=== PATIENT | male | born 1990 | race Caucasian/White ===

== ENCOUNTER 2017-02-28 20:35 | Emergency (ER) | payer SELFPAY ==
[~2017-02-28] VITALS: Ht 180.3 cm; Wt 117.9 kg
[~2017-02-28 20:35] MED LIST: AMOXICILLIN500 MG PO; BACTRIM DS 8001 TA1 PO; CLARITIN-D 12 H1 TAB PO; DOXYCYCLINE MO100 MG PO; HYDROCODONE BIT1 T11 PO; KEFLEX500 MG PO; MOTRIN600 MG PO; MOTRIN800 MG PO; NKHM; TYLENOL WITH CO1 TA1 PO
[2017-02-28 20:48] VITALS: BP 146/79
[2017-02-28] MEDS ORDERED: MEDROL DOSEPAK4 MG PO (22:32)
[2017-02-28] MEDS ORDERED: ZITHROMAX250 MG PO (22:32)
== END 2017-02-28 22:33 | disposition home or self-care (01) ==
LOC: ED 20:35
DX: R05 Cough (principal); R50.9 Fever, unspecified; R11.2 Nausea with vomiting, unspecified; F17.200 Nicotine dependence, unspecified, uncomplicated

== ENCOUNTER 2018-11-16 17:35 | Emergency (ER) | payer OTHER ==
[~2018-11-16] VITALS: Ht 185.4 cm; Wt 127.0 kg
[~2018-11-16 17:35] MED LIST changes: +MEDROL DOSEPAK4 MG PO; +ZITHROMAX250 MG PO; +ZOFRAN ODT4 MG SL
[2018-11-16 17:37] VITALS: BP 137/66
== END 2018-11-16 19:00 ==
LOC: ED 17:35
DX: K52.9 Noninfective gastroenteritis and colitis, unspecified (principal); H61.23 Impacted cerumen, bilateral

== ENCOUNTER 2018-12-16 16:46 | Emergency (ER) | payer OTHER ==
[~2018-12-16] VITALS: Ht 185.4 cm; Wt 129.3 kg
[2018-12-16 16:47] VITALS: BP 152/62
[2019-03-01] MEDS ORDERED: ZOFRAN4 MG PO (19:51)
[2019-03-02] MEDS ORDERED: IMODIUM A-D2 M2 PO (12:43)
[2019-03-02] MEDS ORDERED: ZOFRAN4 MG PO (12:43)
[2019-04-13] MEDS ORDERED: CEPHALEXIN500 M1 PO (22:04)
[2019-04-13] MEDS ORDERED: SEPTDS PO (22:04)
== END 2018-12-16 18:24 | disposition home or self-care (01) ==
LOC: ED 16:46
DX: J02.8 Acute pharyngitis due to other specified organisms (principal); B97.89 Other viral agents as the cause of diseases classified elsewhere

== ENCOUNTER 2018-12-27 16:29 | Emergency (ER) | payer OTHER ==
[~2018-12-27] VITALS: Ht 185.4 cm; Wt 127.0 kg
[2018-12-27 16:30] VITALS: BP 150/84
[2018-12-27] MEDS ORDERED: ZOFRAN4 MG PO (19:13)
[2019-03-01] MEDS ORDERED: ZOFRAN4 MG PO (19:51)
[2019-03-02] MEDS ORDERED: IMODIUM A-D2 M2 PO (12:43)
[2019-03-02] MEDS ORDERED: ZOFRAN4 MG PO (12:43)
[2019-04-13] MEDS ORDERED: CEPHALEXIN500 M1 PO (22:04)
[2019-04-13] MEDS ORDERED: SEPTDS PO (22:04)
== END 2018-12-27 19:24 | disposition home or self-care (01) ==
LOC: ED 16:29
DX: R11.2 Nausea with vomiting, unspecified (principal); R19.7 Diarrhea, unspecified; R51 Headache; F17.200 Nicotine dependence, unspecified, uncomplicated

== ENCOUNTER 2019-08-03 13:07 | Emergency (ER) | payer OTHER ==
[~2019-08-03] VITALS: Ht 185.4 cm; Wt 140.6 kg
[~2019-08-03 13:07] MED LIST changes: +CEPHALEXIN500 M1 PO; +IMODIUM A-D2 M2 PO; +SEPTDS PO; +ZOFRAN4 MG PO
[2019-08-03] MEDS ORDERED: PREDNISONE50 MG PO (15:23)
[2019-08-03] MEDS ORDERED: PROAIR HFA8.5 GM INH (15:23)
[2019-08-03] MEDS ORDERED: ZITHROMAX250 MG PO (15:23)
[2019-08-03 15:24] VITALS: BP 144/79
== END 2019-08-03 15:35 | disposition home or self-care (01) ==
LOC: ED 13:07
DX: J40 Bronchitis, not specified as acute or chronic (principal); F17.200 Nicotine dependence, unspecified, uncomplicated; Z79.2 Long term (current) use of antibiotics

== ENCOUNTER 2019-11-20 18:22 | Emergency (ER) | payer OTHER ==
[~2019-11-20] VITALS: Ht 185.4 cm; Wt 136.1 kg
[~2019-11-20 18:22] MED LIST changes: +PREDNISONE50 MG PO; +PROAIR HFA8.5 GM INH
[2019-11-20 18:44] VITALS: BP 157/83
[2019-11-20] MEDS ORDERED: VIBRAMYCIN100 MG PO (20:40)
== END 2019-11-20 21:00 | disposition home or self-care (01) ==
LOC: ED 18:22
DX: L02.212 Cutaneous abscess of back [any part, except buttock and flank] (principal); E66.01 Morbid (severe) obesity due to excess calories; F17.200 Nicotine dependence, unspecified, uncomplicated; Z79.2 Long term (current) use of antibiotics; Z79.899 Other long term (current) drug therapy

== ENCOUNTER 2020-04-22 13:41 | Emergency (ER) | payer OTHER ==
[~2020-04-22] VITALS: Ht 185.4 cm; Wt 158.8 kg
[~2020-04-22 13:41] MED LIST changes: +VIBRAMYCIN100 MG PO
[2020-04-22 13:49] VITALS: BP 148/98
[2020-04-22] MEDS ORDERED: METHOCARBAMOL500 M1 PO (14:45)
[2020-04-22] MEDS ORDERED: NAPROSYN500 MG PO (14:45)
[2020-04-22] MEDS ORDERED: MEDROL DOSEPAK4 MG PO (14:45)
== END 2020-04-22 15:10 | disposition home or self-care (01) ==
LOC: ED 13:41
DX: S39.012A Strain of muscle, fascia and tendon of lower back, initial encounter (principal); X50.0XXA Overexertion from strenuous movement or load, initial encounter; Y93.89 Activity, other specified; Y92.89 Other specified places as the place of occurrence of the external cause; Y99.8 Other external cause status

== ENCOUNTER 2020-08-07 14:17 | Emergency (ER) | payer OTHER ==
[~2020-08-07] VITALS: Wt 142.9 kg
[~2020-08-07 14:17] MED LIST changes: +METHOCARBAMOL500 M1 PO; +NAPROSYN500 MG PO
[2020-08-07 14:23] VITALS: BP 140/76
[2020-08-07] MEDS ORDERED: CLARITIN10 MG PO (16:58)
[2020-08-07] MEDS ORDERED: PREDNISONE20 M1 PO (16:58)
[2020-08-07] MEDS ORDERED: TESSALON PERLE100 MG PO (16:58)
[2020-08-07] MEDS ORDERED: PROVENTIL HFA6.7 GM INH (16:58)
== END 2020-08-07 17:04 | disposition home or self-care (01) ==
LOC: ED 14:17
DX: J20.9 Acute bronchitis, unspecified (principal); Z79.899 Other long term (current) drug therapy

== ENCOUNTER 2020-08-19 18:28 | Emergency (ER) | payer OTHER ==
[~2020-08-19] VITALS: Ht 185.4 cm; Wt 158.8 kg
[~2020-08-19 18:28] MED LIST changes: +CLARITIN10 MG PO; +PREDNISONE20 M1 PO; +PROVENTIL HFA6.7 GM INH; +TESSALON PERLE100 MG PO
[2020-08-19 18:32] VITALS: BP 151/94
[2020-08-19] MEDS ORDERED: CEPHALEXIN500 M1 PO (18:45)
[2020-08-19] MEDS ORDERED: SEPTDS PO (18:45)
== END 2020-08-19 18:44 | disposition home or self-care (01) ==
LOC: ED 18:28
DX: L03.317 Cellulitis of buttock (principal); F17.200 Nicotine dependence, unspecified, uncomplicated; Z86.14 Personal history of Methicillin resistant Staphylococcus aureus infection; Z79.2 Long term (current) use of antibiotics; Z79.899 Other long term (current) drug therapy

== ENCOUNTER 2020-08-22 02:40 | Emergency (ER) | payer OTHER ==
[~2020-08-22] VITALS: Ht 185.4 cm; Wt 158.8 kg
[2020-08-22 02:52] VITALS: BP 141/90
[2020-08-22] MEDS ORDERED: CLINDAMYCIN HC300 MG PO (05:30)
[2020-08-22] MEDS ORDERED: MEDROL DOSEPAK4 MG PO (05:30)
[2020-08-22] MEDS ORDERED: GOOD SENSE ANTI25 MG PO (05:30)
[2020-08-22] MEDS ORDERED: PEPCID20 MG PO (05:30)
== END 2020-08-22 05:41 | disposition home or self-care (01) ==
LOC: ED 02:40
DX: T78.40XA Allergy, unspecified, initial encounter (principal); L50.9 Urticaria, unspecified; L03.90 Cellulitis, unspecified; Z79.899 Other long term (current) drug therapy; Z79.2 Long term (current) use of antibiotics; X58.XXXA Exposure to other specified factors, initial encounter

== ENCOUNTER 2020-11-16 12:52 | Observation (INO) | payer OTHER ==
[~2020-11-16] VITALS: Wt 158.8 kg
[~2020-11-16 12:52] MED LIST changes: +CLINDAMYCIN HC300 MG PO; +GOOD SENSE ANTI25 MG PO; +PEPCID20 MG PO
[2020-11-16 13:00] VITALS: BP 144/53
[2020-11-16 13:47] LABS: BASO # 0.1 10*3/uL (0.0-0.1); BASO % 0.6 % (0.0-1.0); EOS # 0.4 10*3/uL (0.0-0.4); EOS % 3.6 % (1.0-4.0); HEMATOCRIT 43.9 % (42.0-52.0); LYMPH # 3.2 10*3/uL (1.3-4.4); LYMPH % 30.4 % (27.0-41.0); MEAN CORPUSCULAR HGB 26.1 pg (27.0-31.0); MEAN CORPUSCULAR HGB CONC 31.4 g/dl (33.0-37.0); MEAN PLATELET VOLUME 10.5 fl (9.6-12.3); MONO # 0.7 10*3/uL (0.1-1.0); NEUT # 6.2 10*3/uL (2.3-7.9); NEUT % 58.1 % (47.0-73.0); PLATELET COUNT AUTOMATED 199 10*3/uL (130-400); RED BLOOD COUNT 5.29 10*6/uL (4.50-5.90); RED CELL DISTRI WIDTH 13.4 % (0-14.5); WHITE BLOOD COUNT 10.6 10*3/uL (4.8-10.8)
[2020-11-16 14:02] LABS: ALBUMIN 3.4 gm/dl (3.1-4.5); ALKALINE PHOSPHATASE 106 U/L (45-117); BUN 8 mg/dl (7-24); CHLORIDE 105 mmol/L (98-107); CREATININE 0.67 mg/dL (0.70-1.30); POTASSIUM 3.7 mmol/L (3.5-5.1); SGOT/AST 26 IU/L (3-35); SGPT/ALT 65 U/L (12-78); SODIUM 138 mmol/L (136-145); TOTAL PROTEIN 7.3 gm/dL (6.4-8.2)
[2020-11-16 14:04] VITALS: BP 142/57
[2020-11-16] MEDS ORDERED: DOXYCYCLINE100 M3 PO (17:10)
== END 2020-11-16 17:16 | disposition left against medical advice (07) ==
LOC: ED 12:52 → EDHOLD 14:31
PROVIDERS: Physician Assistant; ADMIT Internal Medicine; ATTEND Internal Medicine
DX: L02.411 Cutaneous abscess of right axilla (principal); L03.113 Cellulitis of right upper limb; R03.0 Elevated blood-pressure reading, without diagnosis of hypertension; D64.9 Anemia, unspecified; E66.01 Morbid (severe) obesity due to excess calories; F17.200 Nicotine dependence, unspecified, uncomplicated; Z71.6 Tobacco abuse counseling

== ENCOUNTER 2021-08-25 16:44 | Emergency (ER) | payer OTHER ==
[~2021-08-25] VITALS: Wt 158.8 kg
[~2021-08-25 16:44] MED LIST changes: +DOXYCYCLINE100 M3 PO
== END 2021-08-25 20:24 | disposition left against medical advice (07) ==
LOC: ED 16:44
DX: R10.9 Unspecified abdominal pain (principal); R11.0 Nausea; Z53.21 Procedure and treatment not carried out due to patient leaving prior to being seen by health care provider

== ENCOUNTER 2021-09-20 22:04 | Emergency (ER) | payer OTHER ==
[~2021-09-20] VITALS: Ht 185.4 cm; Wt 154.2 kg
[2021-09-20 23:12] LABS: BASO % 0.3 % (0.0-1.0); EOS # 0.2 10*3/uL (0.0-0.4); EOS % 1.9 % (1.0-4.0); HEMATOCRIT 46.7 % (42.0-52.0); LYMPH # 4.3 10*3/uL (1.3-4.4); LYMPH % 36.8 % (27.0-41.0); MEAN CELL VOLUME 80.8 fl (80.0-94.0); MEAN CORPUSCULAR HGB 26.5 pg (27.0-31.0); MEAN CORPUSCULAR HGB CONC 32.8 g/dl (33.0-37.0); MEAN PLATELET VOLUME 10.4 fl (9.6-12.3); MONO # 0.9 10*3/uL (0.1-1.0); MONO % 7.6 % (3.0-9.0); NEUT # 6.2 10*3/uL (2.3-7.9); NEUT % 53.1 % (47.0-73.0); PLATELET COUNT AUTOMATED 210 10*3/uL (130-400); RED BLOOD COUNT 5.78 10*6/uL (4.50-5.90); WHITE BLOOD COUNT 11.7 10*3/uL (4.8-10.8)
[2021-09-20 23:30] LABS: ALBUMIN 3.6 gm/dl (3.1-4.5); ALKALINE PHOSPHATASE 104 U/L (45-117); BUN 14 mg/dl (7-24); CHLORIDE 109 mmol/L (98-107); CREATININE 0.71 mg/dL (0.70-1.30); POTASSIUM 3.8 mmol/L (3.5-5.1); SGOT/AST 41 IU/L (3-35); SGPT/ALT 111 U/L (12-78); SODIUM 139 mmol/L (136-145)
[2021-09-21 01:17] LABS: BILIRUBIN 1+ (Negative); BLOOD 3+ (Negative); CLARITY Turbid (Clear); COLOR Dark Yellow (Yellow); GLUCOSE Negative (Negative); KETONE Trace (Negative); LEUKO ESTERASE Trace (Negative); NITRITE Negative (Negative); SPECIFIC GRAVITY >= 1.030 (1.001-1.030)
[2021-09-21 01:42] LABS: CALCIUM OXALATE CRYSTALS 1+; RBC 41-50 rbc/hpf (0-2)
[2021-09-21 01:43] LABS: BACTERIA 1+
[2021-09-21 02:58] VITALS: BP 141/61
== END 2021-09-21 03:21 | disposition home or self-care (01) ==
LOC: ED 22:04
PROVIDERS: Emergency Medicine
DX: N13.2 Hydronephrosis with renal and ureteral calculous obstruction (principal); Z88.1 Allergy status to other antibiotic agents; F17.200 Nicotine dependence, unspecified, uncomplicated

== ENCOUNTER 2021-09-28 12:16 | Emergency (ER) | payer OTHER ==
[~2021-09-28] VITALS: Ht 185.4 cm; Wt 154.2 kg
[2021-09-28 12:34] VITALS: BP 170/95
[2021-09-28 13:03] LABS: BILIRUBIN 2+ (Negative); BLOOD 3+ (Negative); CLARITY Turbid (Clear); COLOR Red (Yellow); GLUCOSE Negative (Negative); KETONE Negative (Negative); LEUKO ESTERASE 2+ (Negative); NITRITE Positive (Negative); SPECIFIC GRAVITY 1.025 (1.001-1.030)
[2021-09-28 13:04] LABS: BASO # 0.1 10*3/uL (0.0-0.1); BASO % 0.4 % (0.0-1.0); EOS # 0.2 10*3/uL (0.0-0.4); EOS % 0.9 % (1.0-4.0); HEMATOCRIT 45.3 % (42.0-52.0); LYMPH # 3.3 10*3/uL (1.3-4.4); LYMPH % 17.1 % (27.0-41.0); MEAN CELL VOLUME 78.9 fl (80.0-94.0); MEAN CORPUSCULAR HGB 26.1 pg (27.0-31.0); MEAN CORPUSCULAR HGB CONC 33.1 g/dl (33.0-37.0); MEAN PLATELET VOLUME 10.4 fl (9.6-12.3); MONO # 1.4 10*3/uL (0.1-1.0); MONO % 7.4 % (3.0-9.0); NEUT # 14.3 10*3/uL (2.3-7.9); NEUT % 73.7 % (47.0-73.0); PLATELET COUNT AUTOMATED 285 10*3/uL (130-400); RED BLOOD COUNT 5.74 10*6/uL (4.50-5.90); RED CELL DISTRI WIDTH 13.7 % (0-14.5); WHITE BLOOD COUNT 19.4 10*3/uL (4.8-10.8)
[2021-09-28 13:23] LABS: ALBUMIN 3.8 gm/dl (3.1-4.5); ALKALINE PHOSPHATASE 98 U/L (45-117); BUN 14 mg/dl (7-24); CHLORIDE 106 mmol/L (98-107); POTASSIUM 3.9 mmol/L (3.5-5.1); SGOT/AST 36 IU/L (3-35); SGPT/ALT 71 U/L (12-78); SODIUM 138 mmol/L (136-145); TOTAL PROTEIN 8.2 gm/dL (6.4-8.2)
[2021-09-28 14:11] LABS: BACTERIA 2+; MUCOUS 2+; RBC TNTC rbc/hpf (0-2); WBC 31-40 wbc/hpf (0-5)
== END 2021-09-28 17:09 | disposition short-term general hospital (02) ==
LOC: ED 12:16
PROVIDERS: Physician Assistant
DX: N39.0 Urinary tract infection, site not specified (principal); D72.829 Elevated white blood cell count, unspecified; N13.30 Unspecified hydronephrosis; Z88.1 Allergy status to other antibiotic agents; F17.200 Nicotine dependence, unspecified, uncomplicated

== ENCOUNTER 2021-10-06 17:56 | Inpatient (IN) | payer OTHER ==
[~2021-10-06] VITALS: Ht 185 cm; Wt 154.0 kg
[2021-10-06 18:25] VITALS: BP 183/86
[2021-10-06 19:49] LABS: BASO # 0.1 10*3/uL (0.0-0.1); BASO % 0.5 % (0.0-1.0); EOS # 0.3 10*3/uL (0.0-0.4); EOS % 2.6 % (1.0-4.0); HEMATOCRIT 38.2 % (42.0-52.0); LYMPH # 3.4 10*3/uL (1.3-4.4); LYMPH % 26.7 % (27.0-41.0); MEAN CELL VOLUME 80.8 fl (80.0-94.0); MEAN CORPUSCULAR HGB 26.6 pg (27.0-31.0); MEAN PLATELET VOLUME 10.3 fl (9.6-12.3); MONO % 8.1 % (3.0-9.0); NEUT # 7.8 10*3/uL (2.3-7.9); NEUT % 61.8 % (47.0-73.0); PLATELET COUNT AUTOMATED 336 10*3/uL (130-400); RED BLOOD COUNT 4.73 10*6/uL (4.50-5.90); RED CELL DISTRI WIDTH 13.4 % (0-14.5); WHITE BLOOD COUNT 12.6 10*3/uL (4.8-10.8)
[2021-10-06 20:00] LABS: BUN 15 mg/dl (7-24); CHLORIDE 103 mmol/L (98-107); CREATININE 1.31 mg/dL (0.70-1.30); SODIUM 138 mmol/L (136-145)
[2021-10-07 01:26] VITALS: BP 159/99
[2021-10-07 08:00] VITALS: BP 162/93
[2021-10-07 12:00] VITALS: BP 107/104
[2021-10-07 13:00] VITALS: BP 180/94
[2021-10-07 15:58] VITALS: BP 163/96
[2021-10-07 20:00] VITALS: BP 180/104
[2021-10-08] VITALS: BP 155/80
[2021-10-08 08:00] VITALS: BP 169/83
[2021-10-08 08:18] LABS: BASO # 0.1 10*3/uL (0.0-0.1); BASO % 0.6 % (0.0-1.0); EOS # 0.5 10*3/uL (0.0-0.4); HEMATOCRIT 39.2 % (42.0-52.0); LYMPH # 2.6 10*3/uL (1.3-4.4); LYMPH % 22.1 % (27.0-41.0); MEAN CELL VOLUME 80.3 fl (80.0-94.0); MEAN CORPUSCULAR HGB 26.4 pg (27.0-31.0); MEAN CORPUSCULAR HGB CONC 32.9 g/dl (33.0-37.0); MEAN PLATELET VOLUME 10.2 fl (9.6-12.3); MONO % 8.4 % (3.0-9.0); NEUT # 7.6 10*3/uL (2.3-7.9); NEUT % 64.4 % (47.0-73.0); PLATELET COUNT AUTOMATED 344 10*3/uL (130-400); RED BLOOD COUNT 4.88 10*6/uL (4.50-5.90); RED CELL DISTRI WIDTH 13.3 % (0-14.5); WHITE BLOOD COUNT 11.7 10*3/uL (4.8-10.8)
[2021-10-08 08:34] LABS: ALBUMIN 3.4 gm/dl (3.1-4.5); ALKALINE PHOSPHATASE 108 U/L (45-117); BUN 15 mg/dl (7-24); CHLORIDE 105 mmol/L (98-107); CREATININE 1.11 mg/dL (0.70-1.30); FREE T4 1.21 ng/dl (0.76-1.46); POTASSIUM 4.2 mmol/L (3.5-5.1); SGOT/AST 24 IU/L (3-35); SGPT/ALT 50 U/L (12-78); SODIUM 138 mmol/L (136-145); TOTAL PROTEIN 8.5 gm/dL (6.4-8.2)
[2021-10-08 12:00] VITALS: BP 158/92
[2021-10-08 16:00] VITALS: BP 177/91
[2021-10-08 17:59] VITALS: BP 152/68
[2021-10-08 20:00] VITALS: BP 167/78
[2021-10-09] VITALS: BP 165/88
[2021-10-09] MEDS ORDERED: ONDANSETRON HYDR4 MG PO (00:38)
[2021-10-09] MEDS ORDERED: Percocet 325 MG1 TAB PO (00:42)
[2021-10-09] MEDS ORDERED: AMLODIPINE BESY10 MG PO (07:55)
[2021-10-09] MEDS ORDERED: DOXYCYCLINE HY100 M3 PO (07:55)
[2021-10-09] MEDS ORDERED: LISINOPRIL10 M1 PO (07:55)
[2021-10-09 08:00] VITALS: BP 156/79
[2021-10-09 08:19] LABS: BASO # 0.1 10*3/uL (0.0-0.1); BASO % 0.8 % (0.0-1.0); EOS # 0.5 10*3/uL (0.0-0.4); EOS % 3.9 % (1.0-4.0); HEMATOCRIT 39.7 % (42.0-52.0); LYMPH # 2.7 10*3/uL (1.3-4.4); LYMPH % 22.8 % (27.0-41.0); MEAN CELL VOLUME 81.7 fl (80.0-94.0); MEAN CORPUSCULAR HGB 26.1 pg (27.0-31.0); MEAN PLATELET VOLUME 10.1 fl (9.6-12.3); MONO # 1.1 10*3/uL (0.1-1.0); MONO % 9.2 % (3.0-9.0); NEUT # 7.4 10*3/uL (2.3-7.9); PLATELET COUNT AUTOMATED 324 10*3/uL (130-400); RED BLOOD COUNT 4.86 10*6/uL (4.50-5.90); RED CELL DISTRI WIDTH 13.5 % (0-14.5); WHITE BLOOD COUNT 11.7 10*3/uL (4.8-10.8)
[2021-10-09 08:34] LABS: ALBUMIN 3.1 gm/dl (3.1-4.5); ALKALINE PHOSPHATASE 97 U/L (45-117); BUN 13 mg/dl (7-24); CHLORIDE 107 mmol/L (98-107); CREATININE 1.06 mg/dL (0.70-1.30); POTASSIUM 4.5 mmol/L (3.5-5.1); SGOT/AST 19 IU/L (3-35); SGPT/ALT 44 U/L (12-78); SODIUM 138 mmol/L (136-145); TOTAL PROTEIN 7.9 gm/dL (6.4-8.2)
== END 2021-10-09 08:36 | disposition home or self-care (01) | DRG 383 ==
LOC: ED 17:56 → EDHOLD 23:14 → 4E 23:14
PROVIDERS: Internal Medicine; Nurse Practitioner; Student in an Organized Health Care Education/Training Program; ADMIT Student in an Organized Health Care Education/Training Program; ATTEND Student in an Organized Health Care Education/Training Program
DX: L03.113 Cellulitis of right upper limb (principal); N17.0 Acute kidney failure with tubular necrosis; D64.9 Anemia, unspecified; I80.9 Phlebitis and thrombophlebitis of unspecified site; F17.210 Nicotine dependence, cigarettes, uncomplicated; Z71.6 Tobacco abuse counseling; E66.01 Morbid (severe) obesity due to excess calories; R03.0 Elevated blood-pressure reading, without diagnosis of hypertension; Z88.2 Allergy status to sulfonamides; Z88.1 Allergy status to other antibiotic agents; Z88.8 Allergy status to other drugs, medicaments and biological substances; Z79.51 Long term (current) use of inhaled steroids; Z79.899 Other long term (current) drug therapy; Z68.41 Body mass index [BMI] 40.0-44.9, adult

== ENCOUNTER → 2021-12-02 | Outpatient (CLI) | payer OTHER ==
[~2021-12-02] MED LIST changes: +AMLODIPINE BESY10 MG PO; +DOXYCYCLINE HY100 M3 PO; +LISINOPRIL10 M1 PO; +ONDANSETRON HYDR4 MG PO; +Percocet 325 MG1 TAB PO
[2021-12-02 11:22] LABS: BASO # 0.1 10*3/uL (0.0-0.1); BASO % 0.7 % (0.0-1.0); BILIRUBIN Negative (Negative); BLOOD Negative (Negative); CLARITY Clear (Clear); COLOR Yellow (Yellow); EOS # 0.4 10*3/uL (0.0-0.4); EOS % 3.2 % (1.0-4.0); GLUCOSE Negative (Negative); HEMATOCRIT 45.4 % (42.0-52.0); KETONE Negative (Negative); LEUKO ESTERASE Negative (Negative); LYMPH # 3.9 10*3/uL (1.3-4.4); LYMPH % 31.3 % (27.0-41.0); MEAN CELL VOLUME 79.6 fl (80.0-94.0); MEAN CORPUSCULAR HGB 26.3 pg (27.0-31.0); MEAN PLATELET VOLUME 10.7 fl (9.6-12.3); MONO # 0.8 10*3/uL (0.1-1.0); MONO % 6.3 % (3.0-9.0); NEUT # 7.2 10*3/uL (2.3-7.9); NITRITE Negative (Negative); PLATELET COUNT AUTOMATED 290 10*3/uL (130-400); RED CELL DISTRI WIDTH 14.5 % (0-14.5); SPECIFIC GRAVITY 1.025 (1.001-1.030); UROBILINOGEN 0.2 E.U./dl (0.0-1.0); WHITE BLOOD COUNT 12.4 10*3/uL (4.8-10.8)
[2021-12-02 11:34] LABS: MUCOUS 2+; RBC 0-2 rbc/hpf (0-2)
[2021-12-02 11:43] LABS: ALBUMIN 4.1 gm/dl (3.1-4.5); ALKALINE PHOSPHATASE 123 U/L (45-117); BUN 17 mg/dl (7-24); CHLORIDE 108 mmol/L (98-107); CHOLESTEROL 175 mg/dL (<200); LDL CHOLESTEROL 128 mg/dL (9-159); POTASSIUM 3.9 mmol/L (3.5-5.1); SGOT/AST 27 IU/L (3-35); SGPT/ALT 68 U/L (12-78); SODIUM 138 mmol/L (136-145); TOTAL PROTEIN 8.6 gm/dL (6.4-8.2); TRIGLYCERIDES 99 mg/dl (<150)
== END | disposition home or self-care (01) ==
LOC: LAB 10:50
PROVIDERS: Student in an Organized Health Care Education/Training Program; ATTEND Family Medicine
DX: Z11.3 Encounter for screening for infections with a predominantly sexual mode of transmission (principal); Z13.220 Encounter for screening for lipoid disorders; Z13.1 Encounter for screening for diabetes mellitus; Z13.29 Encounter for screening for other suspected endocrine disorder; I10 Essential (primary) hypertension; Z87.898 Personal history of other specified conditions

== ENCOUNTER → 2022-01-04 | Outpatient (CLI) | payer OTHER ==
[2022-01-04 09:19] LABS: BASO # 0.1 10*3/uL (0.0-0.1); BASO % 0.5 % (0.0-1.0); EOS # 0.3 10*3/uL (0.0-0.4); EOS % 2.8 % (1.0-4.0); HEMATOCRIT 45.3 % (42.0-52.0); LYMPH # 4.1 10*3/uL (1.3-4.4); LYMPH % 34.3 % (27.0-41.0); MEAN CELL VOLUME 81.9 fl (80.0-94.0); MEAN CORPUSCULAR HGB 26.6 pg (27.0-31.0); MEAN CORPUSCULAR HGB CONC 32.5 g/dl (33.0-37.0); MEAN PLATELET VOLUME 10.2 fl (9.6-12.3); MONO # 0.8 10*3/uL (0.1-1.0); NEUT # 6.5 10*3/uL (2.3-7.9); NEUT % 54.9 % (47.0-73.0); PLATELET COUNT AUTOMATED 231 10*3/uL (130-400); RED BLOOD COUNT 5.53 10*6/uL (4.50-5.90); RED CELL DISTRI WIDTH 14.6 % (0-14.5); WHITE BLOOD COUNT 11.9 10*3/uL (4.8-10.8)
[2022-01-04 09:35] LABS: ALKALINE PHOSPHATASE 123 U/L (45-117); BUN 14 mg/dl (7-24); CHLORIDE 107 mmol/L (98-107); CREATININE 0.72 mg/dL (0.70-1.30); SGOT/AST 17 IU/L (3-35); SGPT/ALT 62 U/L (12-78); SODIUM 139 mmol/L (136-145); TOTAL PROTEIN 7.9 gm/dL (6.4-8.2)
[2022-01-05 07:05] LABS: HEPATITIS B SURFACE AB Non Reactive (.); HEPATITIS B SURFACE AG Negative (Negative)
[2022-01-05 19:04] LABS: HCV LOG10 7.049 (.); HEPATITIS C QNT See Final Results IU/mL (.)
== END | disposition home or self-care (01) ==
LOC: US 12-21 10:30 → LAB 08:46 → US 09:00
DX: K76.89 Other specified diseases of liver (principal); B19.20 Unspecified viral hepatitis C without hepatic coma

== ENCOUNTER 2022-04-08 02:27 | Emergency (ER) | payer OTHER ==
[2022-04-08 02:36] VITALS: BP 143/65
[2022-04-08] MEDS ORDERED: AUGMENTIN 875-875 MG PO (02:50)
== END 2022-04-08 02:58 | disposition home or self-care (01) ==
LOC: ED 02:27
DX: H66.91 Otitis media, unspecified, right ear (principal); F17.200 Nicotine dependence, unspecified, uncomplicated; Z79.899 Other long term (current) drug therapy; Z88.1 Allergy status to other antibiotic agents

== ENCOUNTER → 2022-08-16 | Outpatient (CLI) | payer OTHER ==
[~2022-08-16] MED LIST changes: +AUGMENTIN 875-875 MG PO
[2022-08-16 12:23] LABS: ALKALINE PHOSPHATASE 108 U/L (45-117); BUN 11 mg/dl (7-24); CHLORIDE 109 mmol/L (98-107); CREATININE 0.83 mg/dL (0.70-1.30); POTASSIUM 3.9 mmol/L (3.5-5.1); SGOT/AST 16 IU/L (3-35); SGPT/ALT 43 U/L (12-78); SODIUM 142 mmol/L (136-145); TOTAL PROTEIN 7.6 gm/dL (6.4-8.2)
[2022-08-18 12:07] LABS: HEPATITIS C QUANTITATION HCV Not Detected IU/mL (.)
== END | disposition home or self-care (01) ==
LOC: LAB 11:24
PROVIDERS: ATTEND Internal Medicine
DX: B18.2 Chronic viral hepatitis C (principal)

== ENCOUNTER 2023-12-10 14:24 | Emergency (ER) | payer OTHER ==
[~2023-12-10] VITALS: Ht 185.4 cm; Wt 154.2 kg
[2023-12-10 14:40] VITALS: BP 165/97
[2023-12-10] MEDS ORDERED: HYDROmorphONE Hydrochloride 0.5 MG/0.5 ML SYRINGE IV ONE (15:40)
[2023-12-10] MEDS ORDERED: SODIUM CHLORIDE 0.9% 1,000 ML IV ONE (15:40)
[2023-12-10] MEDS ORDERED: Ondansetron Hydrochloride 4 MG/2 ML VIAL IV ONE (15:40)
[2023-12-10 15:57] LABS: HEMATOCRIT 52.2 % (42.0-52.0); MEAN CELL VOLUME 83.1 fl (80.0-94.0); MEAN CORPUSCULAR HGB 26.9 pg (27.0-31.0); MEAN CORPUSCULAR HGB CONC 32.4 g/dl (33.0-37.0); MEAN PLATELET VOLUME 10.4 fl (9.6-12.3); PLATELET COUNT AUTOMATED 212 10*3/uL (130-400); RED BLOOD COUNT 6.28 10*6/uL (4.50-5.90); RED CELL DISTRI WIDTH 14.4 % (0-14.5); WHITE BLOOD COUNT 18.4 10*3/uL (4.8-10.8)
[2023-12-10 16:02] LABS: MANUAL DIFF REFLEX YES
[2023-12-10 16:11] LABS: BILIRUBIN Negative (Negative); BLOOD 2+ (Negative); CLARITY Clear (Clear); COLOR Yellow (Yellow); GLUCOSE Negative (Negative); KETONE Negative (Negative); LEUKO ESTERASE Negative (Negative); NITRITE Negative (Negative); SPECIFIC GRAVITY >= 1.030 (1.001-1.030)
[2023-12-10 16:18] LABS: BASOPHILS 1 % (0-1); BURR CELLS FEW; OVALOCYTES FEW; PLATELET SUFFICIENCY NORMAL (NORMAL); TARGET CELLS FEW; TOTAL CELLS COUNTED 100 #CELLS
[2023-12-10 16:20] LABS: BACTERIA 1+; RBC 41-50 rbc/hpf (0-2)
[2023-12-10 16:24] LABS: ALKALINE PHOSPHATASE 116 U/L (46-116); BUN 10 mg/dl (9-23); CHLORIDE 106 mmol/L (98-107); LIPASE 27 U/L (12-53); POTASSIUM 3.8 mmol/L (3.4-5.1); SGPT/ALT 41 U/L (5-49)
[2023-12-10] MEDS ORDERED: Ketorolac Tromethamine 30 MG/ML VIAL IV ONE (16:30)
[2023-12-10] MEDS ORDERED: HYDROCODONE-AC1 EAC1 PO (17:54)
[2023-12-10] MEDS ORDERED: FLOMAX0.4 MG PO (17:54)
[2023-12-10] MEDS ORDERED: Tamsulosin Hydrochloride 0.4 MG CAP PO ONE (18:00)
== END 2023-12-10 18:03 | disposition home or self-care (01) ==
LOC: ED 14:24
PROVIDERS: Nurse Practitioner Family
DX: N20.0 Calculus of kidney (principal); D64.9 Anemia, unspecified; R31.9 Hematuria, unspecified; Z88.1 Allergy status to other antibiotic agents; Z88.2 Allergy status to sulfonamides; Z88.8 Allergy status to other drugs, medicaments and biological substances; Z98.890 Other specified postprocedural states; F17.200 Nicotine dependence, unspecified, uncomplicated

== ENCOUNTER 2024-01-30 05:58 | Emergency (ER) | payer OTHER ==
[~2024-01-30] VITALS: Ht 185.4 cm; Wt 154.2 kg
[~2024-01-30 05:58] MED LIST changes: +FLOMAX0.4 MG PO; +HYDROCODONE-AC1 EAC1 PO
[2024-01-30] MEDS ORDERED: PREDNISONE20 M1 PO (07:25)
[2024-01-30] MEDS ORDERED: methylPREDNISolone sod succ 125 MG VIAL IM ONE (07:30)
== END 2024-01-30 07:30 | disposition home or self-care (01) ==
LOC: ED 05:58
DX: J06.9 Acute upper respiratory infection, unspecified (principal); Z20.822 Contact with and (suspected) exposure to COVID-19; F17.200 Nicotine dependence, unspecified, uncomplicated; Z88.1 Allergy status to other antibiotic agents; Z88.2 Allergy status to sulfonamides; Z98.890 Other specified postprocedural states

== ENCOUNTER 2024-08-07 03:43 | Emergency (ER) | payer OTHER ==
[~2024-08-07] VITALS: Ht 185.4 cm; Wt 145.1 kg
[2024-08-07 03:52] VITALS: BP 184/106
[2024-08-07] MEDS ORDERED: methylPREDNISolone sod succ 125 MG VIAL IM ONE (05:20)
[2024-08-07] MEDS ORDERED: ZITHROMAX250 MG PO (05:20)
== END 2024-08-07 05:24 | disposition home or self-care (01) ==
LOC: ED 03:43
DX: B34.9 Viral infection, unspecified (principal); Z20.822 Contact with and (suspected) exposure to COVID-19; G47.10 Hypersomnia, unspecified; R07.89 Other chest pain; F17.200 Nicotine dependence, unspecified, uncomplicated; Z88.1 Allergy status to other antibiotic agents; Z88.2 Allergy status to sulfonamides; Z88.8 Allergy status to other drugs, medicaments and biological substances; Z98.890 Other specified postprocedural states

== ENCOUNTER 2024-09-13 19:30 | Emergency (ER) | payer OTHER ==
[~2024-09-13] VITALS: Ht 185.4 cm; Wt 158.8 kg
[2024-09-13 19:37] VITALS: BP 154/88
[2024-09-13] MEDS ORDERED: MORPHINE Sulfate 2 MG/ML SYR IV ONE (19:55)
[2024-09-13] MEDS ORDERED: Ondansetron Hydrochloride 4 MG/2 ML VIAL IV ONE (19:55)
[2024-09-13] MEDS ORDERED: SODIUM CHLORIDE 0.9% 1,000 ML IV ONE (19:55)
[2024-09-13] MEDS ORDERED: Ketorolac Tromethamine 15 MG/ML VIAL IV ONE (19:55)
[2024-09-13 20:10] LABS: BASO # 0.1 10*3/uL (0.0-0.1); BASO % 0.4 % (0.0-1.0); EOS % 0.1 % (1.0-4.0); HEMATOCRIT 46.4 % (42.0-52.0); MEAN CELL VOLUME 82.7 fl (80.0-94.0); MEAN CORPUSCULAR HGB 26.4 pg (27.0-31.0); MEAN CORPUSCULAR HGB CONC 31.9 g/dl (33.0-37.0); MEAN PLATELET VOLUME 10.5 fl (9.6-12.3); MONO # 0.9 10*3/uL (0.1-1.0); MONO % 4.5 % (3.0-9.0); NEUT # 16.9 10*3/uL (2.3-7.9); PLATELET COUNT AUTOMATED 250 10*3/uL (130-400); RED BLOOD COUNT 5.61 10*6/uL (4.50-5.90); RED CELL DISTRI WIDTH 14.1 % (0-14.5); WHITE BLOOD COUNT 19.7 10*3/uL (4.8-10.8)
[2024-09-13 20:32] LABS: BUN 13 mg/dl (9-23); CHLORIDE 104 mmol/L (98-107); POTASSIUM 3.7 mmol/L (3.4-5.1)
[2024-09-13 21:08] LABS: BILIRUBIN Negative (Negative); BLOOD 2+ (Negative); CLARITY Turbid (Clear); COLOR Yellow (Yellow); GLUCOSE Negative (Negative); KETONE Trace (Negative); LEUKO ESTERASE Negative (Negative); NITRITE Negative (Negative); SPECIFIC GRAVITY 1.025 (1.001-1.030); UROBILINOGEN 0.2 E.U./dl (0.0-1.0)
[2024-09-13] MEDS ORDERED: Ondansetron4 MG PO (21:14)
[2024-09-13] MEDS ORDERED: KETOROLAC10 MG PO (21:14)
[2024-09-13] MEDS ORDERED: FLOMAX0.4 MG PO (21:14)
[2024-09-13] MEDS ORDERED: Ketorolac Tromethamine 10 MG TAB PO ONE (21:15)
[2024-09-13] MEDS ORDERED: Ondansetron 4 MG 2 TAB ED PACK PO SCH (21:15)
[2024-09-13] MEDS ORDERED: Tamsulosin Hydrochloride 0.4 MG CAP PO ONE (21:15)
[2024-09-13] MEDS ORDERED: CIPRO500 MG PO (21:18)
[2024-09-13 21:20] LABS: BACTERIA 2+
[2024-09-13] MEDS ORDERED: Ciprofloxacin Hydrochloride 500 MG TAB PO ONE (21:20)
== END 2024-09-13 21:28 | disposition home or self-care (01) ==
LOC: ED 19:30
PROVIDERS: Nurse Practitioner Family
DX: N13.2 Hydronephrosis with renal and ureteral calculous obstruction (principal); R11.2 Nausea with vomiting, unspecified; R31.9 Hematuria, unspecified; F17.200 Nicotine dependence, unspecified, uncomplicated; Z88.1 Allergy status to other antibiotic agents; Z88.2 Allergy status to sulfonamides; Z88.8 Allergy status to other drugs, medicaments and biological substances; Z98.890 Other specified postprocedural states

== ENCOUNTER 2024-10-10 18:02 | Emergency (ER) | payer OTHER ==
[~2024-10-10] VITALS: Ht 185.4 cm; Wt 158.8 kg
[~2024-10-10 18:02] MED LIST changes: +CIPRO500 MG PO; +KETOROLAC10 MG PO; +Ondansetron4 MG PO
[2024-10-10 18:14] VITALS: BP 146/84
[2024-10-10] MEDS ORDERED: AMOX-CLAV 875-1 EACH PO (18:24)
[2024-10-10] MEDS ORDERED: Amoxicillin/Clavulanate Pota 875 MG TAB PO ONE (18:25)
== END 2024-10-10 18:29 | disposition home or self-care (01) ==
LOC: ED 18:02
DX: J02.0 Streptococcal pharyngitis (principal); F17.210 Nicotine dependence, cigarettes, uncomplicated; Z87.442 Personal history of urinary calculi; Z88.1 Allergy status to other antibiotic agents; Z88.2 Allergy status to sulfonamides; Z88.8 Allergy status to other drugs, medicaments and biological substances; Z98.890 Other specified postprocedural states

== ENCOUNTER 2024-11-30 18:34 | Emergency (ER) | payer OTHER ==
[~2024-11-30] VITALS: Ht 185.4 cm; Wt 163.3 kg
[~2024-11-30 18:34] MED LIST changes: +AMOX-CLAV 875-1 EACH PO
[2024-11-30 19:03] VITALS: BP 157/79
== END 2024-11-30 20:23 | disposition home or self-care (01) ==
LOC: ED 18:34
DX: R05.9 Cough, unspecified (principal); Z20.822 Contact with and (suspected) exposure to COVID-19; R09.89 Other specified symptoms and signs involving the circulatory and respiratory systems; R50.9 Fever, unspecified; F17.200 Nicotine dependence, unspecified, uncomplicated; Z88.1 Allergy status to other antibiotic agents; Z88.2 Allergy status to sulfonamides; Z98.890 Other specified postprocedural states

== ENCOUNTER 2025-01-03 15:25 | Emergency (ER) | payer OTHER ==
[~2025-01-03] VITALS: Wt 163.3 kg
[2025-01-03 15:34] VITALS: BP 157/96
[2025-01-03] MEDS ORDERED: ACETAMINOPHEN 325 MG TAB PO ONE (15:45)
== END 2025-01-03 16:39 | disposition home or self-care (01) ==
LOC: ED 15:25
DX: J06.9 Acute upper respiratory infection, unspecified (principal); Z20.822 Contact with and (suspected) exposure to COVID-19; Z88.1 Allergy status to other antibiotic agents; Z88.2 Allergy status to sulfonamides; Z87.442 Personal history of urinary calculi

== ENCOUNTER 2025-02-23 22:34 | Emergency (ER) | payer SELFPAY ==
[~2025-02-23] VITALS: Ht 185.4 cm; Wt 172.0 kg
[2025-02-23 23:20] VITALS: BP 145/84
[2025-02-24] MEDS ORDERED: AMOX-CLAV 875-1 EACH PO (03:04)
[2025-02-24] MEDS ORDERED: Amoxicillin/Clavulanate Pota 875 MG TAB PO ONE (03:05)
== END 2025-02-24 03:13 | disposition home or self-care (01) ==
LOC: ED 22:34
DX: I88.9 Nonspecific lymphadenitis, unspecified (principal); E66.01 Morbid (severe) obesity due to excess calories; F17.200 Nicotine dependence, unspecified, uncomplicated; Z88.1 Allergy status to other antibiotic agents; Z88.2 Allergy status to sulfonamides; Z87.442 Personal history of urinary calculi; Z68.31 Body mass index [BMI] 31.0-31.9, adult

== ENCOUNTER 2025-05-27 07:30 | Emergency (ER) | payer SELFPAY ==
[~2025-05-27] VITALS: Ht 185.4 cm; Wt 172.4 kg
[2025-05-27] MEDS ORDERED: SODIUM CHLORIDE 0.9% 1,000 ML IV ONE (07:45)
[2025-05-27 08:01] LABS: BASO # 0.1 10*3/uL (0.0-0.1); BASO % 0.7 % (0.0-1.0); EOS # 0.4 10*3/uL (0.0-0.4); EOS % 3.2 % (1.0-4.0); MEAN CELL VOLUME 82.4 fl (80.0-94.0); MEAN CORPUSCULAR HGB 26.6 pg (27.0-31.0); MEAN PLATELET VOLUME 10.5 fl (9.6-12.3); MONO # 1.0 10*3/uL (0.1-1.0); MONO % 7.4 % (3.0-9.0); NEUT # 8.2 10*3/uL (2.3-7.9); NEUT % 59.9 % (47.0-73.0); NUCLEATED RED BLOOD CELL 0.0 % (0.0-0.0); NUCLEATED RED BLOOD CELL 0.0 10*3/uL (0.0-0.0); PLATELET COUNT AUTOMATED 232 10*3/uL (130-400); RED CELL DISTRI WIDTH 14.1 % (0-14.5)
[2025-05-27 08:13] LABS: ACT PARTIAL THROMBO TIME 27.9 SECONDS (20.0-32.1)
[2025-05-27 08:23] LABS: BUN 14 mg/dl (9-23); SGPT/ALT 38 U/L (5-49)
[2025-05-27 10:23] VITALS: BP 148/89
[2025-05-27 10:36] LABS: BILIRUBIN Negative (Negative); BLOOD Negative (Negative); CLARITY Clear (Clear); COLOR Yellow (Yellow); KETONE Negative (Negative); LEUKO ESTERASE Negative (Negative); NITRITE Negative (Negative); PH 5.5 (4.5-8.0); SPECIFIC GRAVITY 1.025 (1.001-1.030); UROBILINOGEN 1.0 E.U./dl (0.0-1.0)
[2025-05-27 10:40] LABS: URINE AMPHETAMINES Negative (1000ng/ml); URINE BARBITURATES Negative (200ng/ml); URINE BENZODIAZEPINES Negative (200ng/ml); URINE CANNABINOIDS (THC) Positive (50ng/ml); URINE COCAINE Negative (300ng/ml); URINE METHADONE Negative (300ng/ml); URINE OPIATES Negative (300ng/ml); URINE PHENCYCLIDINE Negative (25ng/ml)
[2025-05-27 11:10] LABS: BACTERIA TRACE; MUCOUS 1+; RBC 0-2 rbc/hpf (0-2); WBC 0-2 wbc/hpf (0-5)
== END 2025-05-27 11:35 | disposition home or self-care (01) ==
LOC: ED 07:30
PROVIDERS: Internal Medicine
DX: R09.1 Pleurisy (principal); Z98.890 Other specified postprocedural states; Z88.1 Allergy status to other antibiotic agents; Z88.8 Allergy status to other drugs, medicaments and biological substances